=== PATIENT | female | born 1995 | race Two or more races ===

== ENCOUNTER 2024-07-15 09:02 | Emergency (ER) | payer OTHER ==
[~2024-07-15] VITALS: Ht 167.6 cm; Wt 67.1 kg
[2024-07-15] MEDS ORDERED: ONDANSETRON HCL 2 MG/ML VIAL IV ONE (11:00)
[2024-07-15] MEDS ORDERED: FAMOtidine 10 MG/ML (4ML VIAL) IV PUSH ONE (11:00)
[2024-07-15] MEDS ORDERED: 0.9 % SODIUM CHLORIDE 1,000 ML IV ONE (11:15)
[2024-07-15] MEDS ORDERED: FAMOTIDINE/PF 20 MG/2 ML VIAL ONE ×2 (11:19)
[2024-07-15] MEDS ORDERED: ONDANSETRON HCL 2 MG/ML VIAL ONE (11:19)
[2024-07-15 11:34] LABS: HEMATOCRIT 46.9 % (36.0-45.00); HEMOGLOBIN 16.1 g/dL (12.0-15.00); MEAN CELL VOLUME 94.2 fL (80.00-100.00); MEAN CORPUSCULAR HEMOGLOBIN 32.4 pg (27.00-32.0); MEAN CORPUSCULAR HGB CONC 34.4 g/dl (32.0-36.0); PLATELET COUNT 327 K/uL (150-450); RED BLOOD COUNT 4.98 M/uL (4.00-6.00); RED CELL DISTRIBUTION WIDTH 13.6 % (11.5-14.5)
[2024-07-15 12:00] LABS: ALBUMIN 4.4 gm/dL (3.4-5.0); ALKALINE PHOSPHATASE 72 U/L (50-136); ALT/SGPT 24 U/L (12-78); ANION GAP 10 (10.0-20.0); AST/SGOT 28 U/L (15-37); BILIRUBIN TOTAL 1.02 mg/dL (0.3-1.2); BLOOD UREA NITROGEN 20 mg/dL (7-18); BUN CREA RATIO 17 (7.0-25.0); CALCIUM 9.6 mg/dL (8.5-10.1); CARBON DIOXIDE 26 mEq/L (21-32); CHLORIDE 108 mmol/L (98-107); CREATININE SERUM 1.16 mg/dL (0.55-1.02); GFR 56.04; GLOBULINA 4.1 G/DL (2.4-3.5); GLUCOSE FASTING 129 mg/dL (65-100); OSMOLALITY SERUM 284 MOSM/KG (275-295); POTASSIUM 4.01 mEq/L (3.5-5.1); SODIUM 140 mmol/L (136-145); TOTAL PROTEIN 8.5 gm/dL (6.4-8.2)
[2024-07-15 12:01] LABS: HCG QUANTITATIVE < 1 mUI/mL (1-3)
[2024-07-15 12:35] LABS: URINE APPEARANCE Cloudy; URINE BILIRRUBIN Negative (NEGATIVE); URINE BLOOD Negative; URINE COLOR Dark Yellow; URINE GLUCOSE Negative (NEGATIVE); URINE KETONE Trace (NEGATIVE); URINE LEUKOCYTE Trace; URINE NITRATE Negative; URINE PROTEIN Trace (NEGATIVE); URINE UROBILINOGEN 0.2 E.U./dl
[2024-07-15 12:41] LABS: URINE BACTERIA 1915.4 uL (0.0-1933); URINE EPITHELIAL CELLS 45.9 uL (0.0-38.8); URINE RBC 7.2 uL (0.0-20.8); URINE WBC 46.3 uL (0.0-23.2)
[2024-07-15 14:02] LABS: URINE CAST 0.73 uL (0.0-1.40)
[2024-07-15 14:03] LABS: URINE CRYSTALS FEW /HPF; URINE MUCUS HEAVY
[2024-07-15] MEDS ORDERED: HYOSCYAMINE SULFATE 0.125 MG TAB.SUBL ONE (14:04)
[2024-07-15] MEDS ORDERED: HYOSCYAMINE SULFATE 0.125 MG TAB.SUBL SL ONE (14:15)
[2024-07-15] MEDS ORDERED: ZOFRAN8 MG PO (14:34)
[2024-07-15] MEDS ORDERED: CIPRO500 MG PO (14:34)
[2024-07-15] MEDS ORDERED: PROBIOTIC1 EAC2 PO (14:34)
[2024-07-15] MEDS ORDERED: METRONIDAZOLE500 MG PO (14:34)
[2024-07-15] MEDS ORDERED: PEPCID AC20 MG PO (14:34)
[2024-07-15] MEDS ORDERED: DICY20TA PO (14:36)
== END 2024-07-15 14:44 | disposition home or self-care (01) ==
LOC: ER 09:04
PROVIDERS: General Practice
DX: R53.81 Other malaise (principal); K29.70 Gastritis, unspecified, without bleeding; Z20.822 Contact with and (suspected) exposure to COVID-19
CPT/HCPCS: 36415; 96365; 96366; 99282; J2405; J3490; J7030